=== PATIENT | male | born 1990 | race American Indian/Alaskan Native ===

== ENCOUNTER → 2023-01-21 14:06 | Outpatient (CLI) | payer OTHER, SELFPAY ==
--- NOTE | 2023-01-21 | DI.ECHO.S_ITS ---
[facility] +---------+ : : [address] : [address] : : : : [id number] : : : : Phone: [phone]+ Echocardiogram Report + + :Name: REBECCA HEIN Study Date: 01/21/2023 Height: 68 in : :[facility] ReadingLocation: Weight: 180 lb : : Gender: Male BSA: 2.0 m2 : :: 1990 Age: 32 yrs BP: 144/92 mmHg: :Reason For Study: Chest Pain : :Ordering Physician: LITZY, : :JUAN RAMON Performed By: Guillermina Cai : :Referring: JUAN RAMON MCGHEE : + + Interpretation Summary 1) Normal left ventricular thickness and size with mildly reduced systolic function (EF 45-50%). 2) Normal right ventricular size and function. 3) No significant valvular abnormalities. 4) No prior Echo available for comparison. Procedure: A two-dimensional transthoracic echocardiogram with color flow and Doppler was performed. The study quality was technically adequate. There is no prior echocardiogram noted for this patient. The patient was in normal sinus rhythm during the exam. Left Ventricle: The left ventricle is normal in size and wall thickness. The ejection fraction is estimated to be 45-50%. There is borderline global hypokinesis of the left ventricle. Diastolic parameters suggest probable normal left ventricular diastolic function and normal filling pressures. Right Ventricle: The right ventricle is normal in size and function. Atria: The left atrial size is normal. Right atrial size is normal. There is no Doppler evidence for an interatrial shunt. Mitral Valve: The mitral valve is normal. There is no mitral valve stenosis. There is trace mitral regurgitation. Aortic Valve: The aortic valve is trileaflet. The aortic valve opens well. There is no aortic valve stenosis. No aortic regurgitation is present. Tricuspid Valve: The tricuspid valve leaflets are thin and pliable. There is no tricuspid stenosis. There is mild tricuspid regurgitation. The right ventricular systolic pressure is estimated to be at least 18 mmHg based on an estimated right atrial pressure of 3 mm Hg. Pulmonic Valve: The pulmonic valve leaflets are thin and pliable; valve motion is normal. There is no pulmonic valvular stenosis. There is trace pulmonic regurgitation. Great Vessels: The aortic root is normal size. The ascending aorta is normal in size. The pulmonary artery is normal size. The IVC is of normal diameter and collapses greater than 50% with a sniff. This suggests a low right atrial pressure of 3 mm Hg. Pericardium/ Pleura There is no pericardial effusion. There is no pleural effusion. MMode/2D Measurements & Calculations LVIDd: 4.7 cm LVOT diam: 2.0 cm LVIDs: 3.1 cm Ao root diam: 2.8 cm FS: 34.0 % asc Aorta Diam: 2.7 cm EPSS: 1.0 cm IVSd: 0.70 cm LVPWd: 0.70 cm LV early. diameter/BSA (cm/m^2): 2.4 LV sys. diameter/BSA (cm/m^2): 1.6 LA A2 area: 12.2 cm2 RA long axis: 4.1 cm LA A4 area: 11.2 cm2 RA area: 11.5 cm2 LA length (vol): 4.1 cm RA vol: 27.4 ml LA vol: 28.4 ml RA : 14.0 ml/m2 LA vol index: 14.5 ml/m2 RVD1 (basal): 3.7 cm LVLs ap4: 6.1 cm LVLd ap2: 7.8 cm TAPSE_phl: 2.0 cm LVLs ap2: 6.8 cm Doppler Measurements & Calculations Ao V2 max: 141.7 cm/sec LVOT Max Cezar: 102.2 cm/sec Ao V2 mean: 97.3 cm/sec LV V1 max P.2 mmHg Ao max P.0 mmHg LV V1 VTI: 20.5 cm Ao mean P.0 mmHg KAM(I,D): 2.1 cm2 Ao V2 VTI: 31.4 cm KAM(V,D): 2.3 cm2 sev ratio: 0.65 KAM indexed to BSA (cm^2/m^2): 1.1 MV E max cezar: 84.8 cm/sec TR max cezar: 197.0 cm/sec MV A max cezar: 74.1 cm/sec TR max P.6 mmHg MV E/A: 1.1 PA V2 max: 110.0 cm/sec Med Peak E' Cezar: 9.8 cm/sec PA V2 mean: 76.6 cm/sec E/E' med: 8.7 PA mean P.0 mmHg Lat Peak E' Cezar: 14.9 cm/sec PA pr(Accel): 19.6 mmHg E/E' lat: 5.7 E/e' average: 7.2 MV dec time: 0.17 sec SV(LVOT): 64.4 ml AV VR_phl: 0.72 KAM(VTI)/BSA_phl: 1.1 Reading Physician:03:56 PM
== END ==
PROVIDERS: Referring Provider Chiropractor; Visit Provider Chiropractor
DX: I07.1 Rheumatic tricuspid insufficiency (principal); R05.3 Chronic cough; R07.9 Chest pain, unspecified; R00.2 Palpitations; M47.9 Spondylosis, unspecified
CPT/HCPCS: 93306

== ENCOUNTER → 2023-01-26 11:43 | Outpatient (CLI) | payer OTHER, SELFPAY | PROVIDERS: Referring Provider Chiropractor; Visit Provider Chiropractor | DX: R05.3 Chronic cough (principal); R07.9 Chest pain, unspecified; M47.9 Spondylosis, unspecified; R00.2 Palpitations | CPT/HCPCS: 94060 ==

== ENCOUNTER → 2023-03-09 16:30 | Outpatient (CLI) | payer OTHER, SELFPAY ==
--- NOTE | 2023-03-09 | DI.MRI.S_ITS ---
PROCEDURE: MR LUMBAR SPINE WO CON INDICATIONS: Radiculopathy, lumbar region TECHNIQUE: Noncontrast sagittal T1 spin echo and T2 fast echo, sagittal STIR, and T2 fast spin echo through the lumbar spine. In cases with scoliosis, additional coronal T2 fast spin echo may be performed. COMPARISON: [facility] Outside Film, MR, MR LUMBAR SPINE WITHOUT CONTRAST, 05/22/2022, 4:07. FINDINGS: Image quality: Excellent. Alignment and Curvature: There is normal bony alignment. Bone Marrow: Marrow is of normal overall signal. No acute vertebral body compression fractures. Spinal Cord: Conus medullaris terminates at the L2 level. Visualized cord demonstrates normal signal and size. Paraspinous Soft Tissues: No paravertebral masses. T12-L1: Normal appearance. L1-L2: Normal appearance. L2-L3: Normal appearance. L3-L4: Normal appearance. L4-L5: Slight interval increase in diffuse disc bulge. Mild facet hypertrophy. No canal stenosis or foraminal stenosis. L5-S1: Slight interval progression. Annulus tear plus broad-based disc bulge, eccentric to the left, with development of very mild posterior displacement of the left S1 nerve root in the left lateral recess. No central canal stenosis. Bilateral facet hypertrophy. No foraminal stenosis. IMPRESSION: 1. Slight interval progression at L5-S1. Again noted is annulus tear plus broad-based disc bulge, eccentric to the left. Disc bulge has slightly progressed, with very mild posterior displacement of the left S1 nerve root. Question: Does this patient have left S1 radicular symptoms? 2. Mild lower lumbar facet arthropathy. 3. No central canal stenosis or foraminal stenosis. Dictated by: Bharath Dailey M.D. on 03/10/2023 at 8:16 Approved by: Bharath Dailey M.D. on 03/10/2023 at 8:23
== END ==
PROVIDERS: Referring Provider Physical Medicine & Rehabilitation Pain Medicine; Visit Provider Physical Medicine & Rehabilitation Pain Medicine
DX: M51.16 Intervertebral disc disorders with radiculopathy, lumbar region (principal); M47.26 Other spondylosis with radiculopathy, lumbar region; M51.17 Intervertebral disc disorders with radiculopathy, lumbosacral region; M47.27 Other spondylosis with radiculopathy, lumbosacral region
CPT/HCPCS: 72148

== ENCOUNTER 2023-10-16 09:30 | Emergency (ER) | payer OTHER, SELFPAY ==
[2023-10-16 09:30] VITALS: BP 136/76; PULSE 65; RESP 14; TEMP 36.6; O2SAT 98; BMI 27.9
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
== END 2023-10-16 10:18 | disposition home or self-care (01) ==
PROVIDERS: Emergency Provider Emergency Medicine
DX: L03.011 Cellulitis of right finger (principal)
CPT/HCPCS: 99281; 99282